=== PATIENT | male | born 1985 | race Asian ===

== ENCOUNTER 2017-01-23 02:40 | Emergency (ER) | payer BC ==
[2017-01-23] MEDS ORDERED: LORazepam 2 MG/ML INJ ONE (02:46)
--- NOTE | 2017-01-23 02:47 | EDPHY ---
H & P HPI/ROS: HPI CHIEF COMPLAINT: Anxiety, tremors, after ingesting edible marijuana HISTORY OF PRESENT ILLNESS: This patient very pleasant 31-year-old male no significant medical history presents emergency room by EMS feeling very anxious and shaky and paranoid after he ingested a double marijuana. Patient tells me that he had 2 separate doses of Advil marijuana is unsure the exact total mg. States that around 11:00 p.m. ingested the edible marijuana did not feel much is side effect around midnight took another dose. The email tells me feels very anxious, paranoid and tremulous. Past Medical History: No significant medical history Past Surgical History: No significant surgical history Social History: Endorses double marijuana occasionally, denies illicit drugs or alcohol Family History: Noncontributory ROS REVIEW OF SYSTEMS: A comprehensive 10 point review of systems is otherwise negative aside from elements mentioned in the history of present illness. Exam Constitutional anxious, triage nursing summary reviewed, vital signs reviewed, awake/alert. Eyes normal conjunctivae and sclera, EOMI, PERRLA. HENT normal inspection, atraumatic, moist mucus membranes, no epistaxis, neck supple/ no meningismus, no raccoon eyes. Respiratory clear to auscultation bilaterally, normal breath sounds, no respiratory distress, no wheezing. Cardiovascular tachycardic, regular rhythm, no murmur, no edema, distal pulses normal. Gastrointestinal soft, non-tender, no rebound, no guarding, normal bowel sounds, no distension, no pulsatile mass. Genitourinary no CVA tenderness. Musculoskeletal no midline vertebral tenderness, full range of motion, no calf swelling, no tenderness of extremities, no meningismus, good pulses, neurovascularly intact. Skin pink, warm, & dry, no rash, skin atraumatic. Neurologic awake, alert and oriented x 3, AAOx3, moves all 4 extremities equally, motor intact, sensory intact, CN II-XII intact, normal cerebellar, normal vision, normal speech. Psychiatric normal mood/affect. Heme/Lymph/Immune no lymphadenopathy. Differential Diagnosis: Includes but is not limited to in a particular order, edible marijuana ingestion, adverse effect amenable marijuana, dehydration, anxiety Medical Decision Making: Patient had an IV established, patient be given IV Ativan for acute anxiety. Will re-evaluate. Re-evaluation: 0405AM: Patient received a total 1 mg IV Ativan he is resting comfortably and sleeping. Family at bedside. 0525AM: Patient up ambulating throughout the emergency room any difficulty. Feels much better after IV Ativan. Requesting discharge. Recommend stay way from edible marijuana. He understands this. Family bedside agrees with this plan. Source: Patient, EMS Constitutional: Initial Vital Signs Temperature (C) 37.3 C 01/23/17 02:46 Heart Rate 116 H 01/23/17 02:46 Respiratory Rate 20 01/23/17 02:46 Blood Pressure 172/90 H 01/23/17 02:46 O2 Sat (%) 98 01/23/17 02:46 O2 Delivery Mode Room Air Allergies/Adverse Reactions: No Known Allergies Allergy (Unverified 01/23/17 02:48) Home Medications: Medication Instructions Recorded NK [No Known Home Meds] 01/23/17 Medical Decision Making - Data Points Medications Given: Discontinued Medications Sodium Chloride (Ns) 1,000 mls @ 0 mls/hr IV ONCE ONE PRN Reason: Wide Open Stop: 01/23/17 02:53 Last Admin: 01/23/17 03:05 Dose: 1,000 mls Lorazepam (Ativan Injection) 0.5 mg IVP EDNOW ONE Stop: 01/23/17 02:53 Last Admin: 01/23/17 03:06 Dose: 0.5 mg Lorazepam (Ativan Injection) 0.5 mg IVP EDNOW ONE Stop: 01/23/17 03:30 Last Admin: 01/23/17 03:34 Dose: 0.5 mg Departure - Departure Disposition: Home, Routine, Self-Care Clinical Impression: Anxiety, Marijuana use Condition: Good Instructions: Anxiety (ED) Additional Instructions: 1. Refrain from ingesting edible marijuana. Referrals: Patient,NotPresent [Unknown] - As per Instructions
[2017-01-23] MEDS ORDERED: LORazepam 2 MG/ML INJ IVP ONE ×2 (02:52→03:29)
[2017-01-23] MEDS ORDERED: NS 1,000 ML IV ONE (02:52)
[2017-01-23 05:41] VITALS: PULSE 78; RESP 16; O2SAT 97
[2017-01-23 05:42] VITALS: BP 114/72; TEMP 98.1
== END 2017-01-23 05:42 | disposition home or self-care (01) ==
DX: F41.9 Anxiety disorder, unspecified (principal); F12.90 Cannabis use, unspecified, uncomplicated
CPT/HCPCS: 96374; J2060